=== PATIENT | female | born 1985 | race African-American/Black ===

== ENCOUNTER 2019-11-20 11:46 | Inpatient (IN) | payer MEDICAID ==
[~2019-11-20] VITALS: Ht 172.7 cm; Wt 82.6 kg
[2019-11-20] MEDS ORDERED: SODIUM CHLORIDE 0.9% 1,000 ML IV ONE (12:08)
[2019-11-20] MEDS ORDERED: NALOXONE HCL 1 MG/ML 2ML VIAL IV ONE (12:15)
[2019-11-20 13:05] LABS: CLARITY URINE CLEAR (CLEAR); COLOR URINE YELLOW (YELLOW); KETONES URINE TRACE (NEGATIVE); LEUKOCYTE ESTERASE URINE NEGATIVE (NEGATIVE); NITRITE URINE NEGATIVE (NEGATIVE); OCCULT BLOOD URINE NEGATIVE (NEGATIVE); PH URINE >=9.0 (4.5-8.0); PROTEIN URINE 1+ (NEGATIVE); SPECIFIC GRAVITY URINE 1.019 (1.005-1.030); UROBILINOGEN URINE 0.2 E.U./dL (0.2-1.0)
[2019-11-20 13:09] LABS: CHLORIDE 106 mEq/L (98-107)
[2019-11-20 13:12] LABS: HEMOGLOBIN. 11.8 g/dL (12.0-16.0); MEAN CORPUSCULAR HEMOGLOBIN 27.8 pg (28.0-32.0); MEAN PLATELET VOLUME 10.2 fl (7.4-10.4); PLATELET 315 x1000/uL (130-400); RED BLOOD CELL COUNT 4.24 mill/uL (4.2-5.4)
[2019-11-20 13:13] LABS: ETHANOL BLOOD < 10 mg/dL
[2019-11-20 13:31] LABS: *AMPHETAMINES SCREEN URINE NEGATIVE (NEGATIVE); *BARBITURATES SCREEN URINE NEGATIVE (NEGATIVE)
[2019-11-20 13:32] LABS: METHADONE URINE SCREEN NEGATIVE (NEGATIVE); OPIATES URINE SCREEN NEGATIVE (NEGATIVE); PHENCYCLIDINE URINE SCREEN NEGATIVE (NEGATIVE)
[2019-11-20 13:37] LABS: *BENZODIAZEPINES SCREEN URINE PRESUMTIVE POSITIVE (NEGATIVE); *COCAINE SCREEN URINE PRESUMTIVE POSITIVE (NEGATIVE); CANNABINOID URINE SCREEN PRESUMTIVE POSITIVE (NEGATIVE)
[2019-11-20 14:00] LABS: INR 0.9
[2019-11-20 14:07] LABS: PLATELET ESTIMATE NORMAL
[2019-11-20] MEDS ORDERED: ONDANSETRON HCL 4MG/2ML INJ IV ONE (16:15)
[2019-11-20] MEDS ORDERED: CLONIDINE 0.1MG TABLET PO PRN (19:45)
[2019-11-20] MEDS ORDERED: MAGNESIUM/ALUMINUM HYDROXIDE/SIMETHICONE 30ML UDC PO PRN (19:45)
[2019-11-20] MEDS ORDERED: ACETAMINOPHEN 325MG TABLET PO PRN ×2 (19:45)
[2019-11-20] MEDS ORDERED: DIPHENHYDRAMINE 50MG/ML VIAL IV PRN (19:45)
[2019-11-20] MEDS ORDERED: ONDANSETRON HCL 4MG/2ML INJ IV PRN (19:45)
[2019-11-20] MEDS ORDERED: LEVETIRACETAM 500MG PREMIX 100 ML IV NR (21:15)
[2019-11-21] MEDS ORDERED: ZOLPIDEM TARTRATE 5MG TABLET PO PRN ×2 (00:45→21:00)
[2019-11-21] MEDS ORDERED: FAMOTIDINE 20MG/2ML VIAL IV SCH ×2 (00:45→09:00)
[2019-11-21 04:46] VITALS: BP 160/90
[2019-11-21] MEDS ORDERED: SODIUM CHLORIDE 0.9% 1,000 ML IV SCH (07:00)
[2019-11-21] MEDS ORDERED: HYDRALAZINE 20MG/ML VIAL IV PRN (07:00)
[2019-11-21] MEDS ORDERED: LEVETIRACETAM 500MG PREMIX 100 ML IV SCH (09:00)
[2019-11-21] MEDS ORDERED: MVI, ADULT NO.1 10 ML, FOLIC ACID 1 MG, THIAMINE HCL 100 MG in SODIUM CHLORIDE 0.9% 1,0... IV SCH ×4 (09:00)
[2019-11-21] MEDS ORDERED: LEVETIRACETAM 500 MG in SODIUM CHLORIDE 0.9% 100 ML IV SCH (09:00)
[2019-11-21] MEDS ORDERED: AMLODIPINE 5MG TABLET PO SCH (09:00)
== END 2019-11-21 08:30 | disposition left against medical advice (07) | DRG 52 ==
LOC: EDBD 12:14 → ER 12:14 → 6WST 17:03 → EDBEDREQ 17:06 → EDBEDREQTM 17:06 → ENRESERV 11-21 03:27
PROVIDERS: ADMIT Internal Medicine; ATTEND Internal Medicine
DX: G92 Toxic encephalopathy (principal); F12.10 Cannabis abuse, uncomplicated; G40.909 Epilepsy, unspecified, not intractable, without status epilepticus; Z53.29 Procedure and treatment not carried out because of patient's decision for other reasons; I10 Essential (primary) hypertension; F14.10 Cocaine abuse, uncomplicated
CPT/HCPCS: 36415; 71045; 80053; 80305; 80307; 80320; 80329; 81003; 82140; 83605; 84443; 84484; 85025; 86850; 86900; 93005; 99285; J1953; J2310; J2405; J3411; J3490; J7030; G0480